=== PATIENT | female | born 1955 ===

== ENCOUNTER 2023-07-18 10:11 | Outpatient (AMB) | payer MEDICARE, SELFPAY ==
--- NOTE | 2023-07-18 10:13 | MHC.OFFVIS ---
Intake Vital Signs 07/18/23 10:14 Height 5 ft 4 in Weight 159 lb 8 oz BMI 27.4 BP 130/72 Blood Pressure Location Rt brachial Position Sitting Pulse 67 Pulse Source Pulse Oximeter Pulse Oximetry (%) 97 Oxygen Delivery Method Room Air Intake Visit Reasons: ENP-Migraines Intake Note: Patient presents for migraines. Patient states this happened about a year ago. I haven't had a migraine in months, but I do get pain in the back of my head. Allergies Penicillins Allergy (Severe, Verified 07/18/23 10:17) Rash aspirin Allergy (Unknown, Verified 07/18/23 10:17) Unknown tramadol Allergy (Unknown, Verified 07/18/23 10:17) Unknown Medication List - Last Reconciled 07/18/23 by DANA Sparks amitriptyline 25 mg PO BEDTIME atorvastatin 40 mg PO DAILY chlorthalidone 25 mg PO DAILY cholecalciferol (vitamin D3) 50 mcg PO DAILY diclofenac sodium 1% topical ezetimibe 10 mg PO DAILY famotidine 20 mg PO BID fluticasone propionate 50 mcg/actuation sprays intranasal ketotifen fumarate 0.025%(0.035%) (Eye Itch Relief) 0 drps ophthalmic (eye) levothyroxine 88 mcg PO DAILY meloxicam 7.5 mg PO DAILY HPI HPI Comments History of Present Illness Details Left-handed 67-yr-old female presents for new pt evaluation of headache disorder. Pt reports she started having headaches about 2 yrs ago w/o preceding cause. She has a more severe attack in March, but since attacks have been less severe and frequent. Headache questionnaire: Head Ct in March- negative Typical headache characteristics: Prodrome symptoms? none Aura? none Location, quality, characteristics? The pain starts in the back of the neck/head and moves into bifrontal region. The pain is pressure Pain intensity? mild-severe Associated symptoms? photophobia, phonophobia, osmophobia, nausea, if more severe dizziness, neck/back pain, Focal weakness, Parethesias, Autonomic s/s? red/watery eyes Postdrome? unsure Triggers? not sleeping well, stress Any positional, valsalva, exertional, sexual activity triggers? none Menstrual triggers? none Time of day? Often in the morning Duration? hours if she relaxs Frequency? About 1 x per week, more severe headache is more rare- last was in march. How does headache impact your life? rests Current acute medication use/interventions: Tylenol- helps a little. Meloxicam- thinks Tylenol helps better and irriates her stomach. Previous acute medication use: None Current preventative medication use: Amitriptyline Previous preventative medication use: None Non-pharmacological interventions: Has done PT for her neck- did not help much. History of musculoskeletal disorders or injury? She has arthritis in her neck, hands, knees History of concussion/head injury? None History of mood disorder? None History of sleep disorder? She has difficulty sleeping, difficulty falling asleep- thinking too much, wakes up frequently, easily dozes off when inactive. Has never had a sleep study. History of respiratory disease? none, but has environment/animal allergies History of CV disease? HTN- well-controlled at this time History of coagulopathy? None History of endocrine or metabolic disease? Hypothyroidism- stable, f/b endocrinology- at [place] in [facility]. History of seizure? None History of GI disorder? Gastritis Other? Has tingling, cramps, feeling of insects crawling in her solomon hands and feet- more so at rest or when in bed. Has restlessness, especially when in bed. Denies known h/o anemia. Family planning? none Family history of migraine or other headache disorder? yes PFSH Medical History (Updated 07/18/23 @ 19:02 by DANA Sparks) Arthritis Atypical chest pain Calcaneal spur, left Chronic constipation Chronic knee pain GERD (gastroesophageal reflux disease) HLD (hyperlipidemia) HTN (hypertension) Hypothyroidism Liver disorder Spondylolisthesis, lumbar region Vitamin D deficiency Surgical History (Updated 07/18/23 @ 10:20 by ELVA Lawson) H/O tubal ligation History of rotator cuff surgery History of surgery on lower extremity Family History (Updated 07/18/23 @ 10:20 by ELVA Lawson) Father Cancer Social History Alcohol intake: never Patient Tobacco Use Status: Never used Tobacco Review of Systems Const Details: See scanned ROS form Physical Exam Vital Signs: Last Vital Signs Pulse 67 07/18/23 10:14 BP 130/72 07/18/23 10:14 Pulse Ox 97 07/18/23 10:14 Oxygen Delivery Method Room Air 07/18/23 10:14 BMI result Body Mass Index 27.4 Const Orientation/consciousness: patient oriented x3 HEENT Other: Mild palpable scalp tenderness. Mallampati grade IV Head: Yes normocephalic Resp Effort & Inspection: normal respiratory effort and able to speak in complete sentences Back/Spine/Pelvis Other: Bilateral posterior cervical tightness. Cervical ROM: limited Left Spurling: normal Right Spurling: normal. Neuro General: patient oriented x3 Cranial nerves: Yes CN's II-XII intact bilaterally Cognition (Neuro): normal cognition Gait exam (Neuro): Normal gait present Motor exam (neuro): 5/5 motor strength present throughout Deep tendon reflexes (DTR's): Right triceps reflex intensity grade: 2+, Left triceps reflex intensity grade: 2+, Rt Biceps (C5, C6): 2+, Left biceps reflex intensity grade: 2+, Right brachioradialis reflex intensity grade: 2+, Left brachioradialis reflex intensity grade: 2+, Right patellar reflex intensity grade: 2+ and Left patellar reflex intensity grade: 2+ Coordination: [id number] test normal, tandem gait normal and Romberg test negative Pupils: Normal pupillary reactivity/response: bilateral Psych Appearance: grossly normal Mental Status: mental status grossly normal Speech and movement: Normal speech and movement present Affect: normal affect Attitude: cooperative Thought process: Normal thought process present Assessment & Plan Assessment & Plan (1) Migraine without aura: Code(s): G43.009 - Migraine without aura, not intractable, without status migrainosus (2) Snoring: Code(s): R06.83 - Snoring (3) Excessive daytime sleepiness: Code(s): G47.19 - Other hypersomnia (4) Sleep difficulties: Code(s): G47.9 - Sleep disorder, unspecified (5) Restless leg: Code(s): G25.81 - Restless legs syndrome (6) Cervicalgia: Code(s): M54.2 - Cervicalgia Plan Pt advised to undergo HST to assess for sleep apnea For overall headache management: Discussed importance of good self-care, including but not limited to maintaining a healthy diet, adequate fluid intake, adequate sleep, and engaging in regular physical activity. For headache triggers: Track headaches. Monitor restless legs- consider furtehr work-up / tx . Monitor neck pain response to migarine tx. For acute headache treatment: Discussed importance of taking acute medications at the first sign of headache, however stressed importance of avoiding acute medication overuse (especially with combined headache medications). Trial Ubrogepant (Ubrelvy) 100mg tab, 1/2 - 1 tab (50-100mg) at onset of headache, may repeat in 2 hours. Max of 2 tabs (200mg) per 24 hours. May adjunct with OTC Tylenol 650mg q 4 hours. Reviewed potential adverse effects of gepants, including but not limited to fatigue, nausea, dry mouth, constipation. Previous acute migraine medication trials: Ibuprofen- causes I upset Acute migraine medication contraindications: Triptans d/t hx of HTN For headache prevention medication: Discussed that preventative medications should be taken routinely as prescribed for best effect, it may take several weeks for full effect to take effect. Start Magnesium 400mg qhs Continue Amitriptyline 25mg qhs Previous migraine prevention medication trials: None other Migraine prevention medication contraindications: Would avoid Aimovig d/t hx of chronic constipation. Information also given on non-pharmacological interventions, such as Cefaly or Nerivio neuromodulation devices. Pt to follow-up in 3 months or sooner prn. Orders: Orders RT home sleep study Today G47.19 - Other hypersomnia, G47.9 - Sleep disorder, unspecified, R06.83 - Snoring Medications: New ubrogepant (Ubrelvy) take at onset of migraine, may repeat in 2hrs (may take w/ Tylenol) 50 - 100 mg (0.5 - 1 x 100 mg) PO ONCE 30 days PRN 10 tabs 6RF migraine headache magnesium oxide may hold for loose stools 400 mg PO BEDTIME 30 days 30 tabs 6RF Coding Level of Care Code New Pt Level 4 (00128) Diagnoses Migraine without aura G43.009 Snoring R06.83 Excessive daytime sleepiness G47.19 Sleep difficulties G47.9 Restless leg G25.81 Cervicalgia M54.2
[2023-07-18 10:14] VITALS: BP 130/72; PULSE 67; O2SAT 97; BMI 27.4
== END 2023-07-18 11:16 | disposition home or self-care (01) ==
PROVIDERS: Visit Provider Nurse Practitioner Family
DX: G43.009 Migraine without aura, not intractable, without status migrainosus (principal); R06.83 Snoring; G47.19 Other hypersomnia; G47.9 Sleep disorder, unspecified; G25.81 Restless legs syndrome; M54.2 Cervicalgia
CPT/HCPCS: 99204

== ENCOUNTER → 2023-07-18 10:11 | Outpatient (BNVA) | payer MEDICARE, SELFPAY | PROVIDERS: Visit Provider Nurse Practitioner Family | DX: G43.009 Migraine without aura, not intractable, without status migrainosus (principal); G47.19 Other hypersomnia; G47.9 Sleep disorder, unspecified; G25.81 Restless legs syndrome; M54.2 Cervicalgia; R06.83 Snoring | CPT/HCPCS: 99202 ==

== ENCOUNTER → 2023-09-04 15:58 | Outpatient (REF) | payer MEDICARE, SELFPAY | LOC: HO.SL 15:58 | PROVIDERS: PCP Internal Medicine; Visit Provider Nurse Practitioner Family | DX: G47.19 Other hypersomnia (principal); G47.9 Sleep disorder, unspecified; R06.83 Snoring | CPT/HCPCS: 95806 ==

== ENCOUNTER → 2023-09-04 16:10 | Outpatient (BNV) | payer MEDICARE, SELFPAY | PROVIDERS: PCP Internal Medicine; Visit Provider Psychiatry & Neurology Neurology | DX: G47.33 Obstructive sleep apnea (adult) (pediatric) (principal) | CPT/HCPCS: 95806 ==

== ENCOUNTER → 2023-10-22 15:39 | Outpatient (BNVA) | payer MEDICARE, SELFPAY | PROVIDERS: PCP Internal Medicine; Visit Provider Nurse Practitioner Family ==

== ENCOUNTER 2024-01-28 13:56 | Outpatient (AMB) | payer MEDICARE, SELFPAY ==
--- NOTE | 2024-01-28 14:01 | MHC.OFFVIS ---
Intake Vital Signs 01/28/24 14:03 Height 5 ft 4 in Weight 165 lb BMI 28.3 BP 124/76 Blood Pressure Location Rt brachial Position Sitting Pulse 77 Pulse Source Pulse Oximeter Pulse Oximetry (%) 98 Oxygen Delivery Method Room Air Intake Visit Reasons: 3 month f/u-Conf Intake Note: Patient presents for 3 month follow up. some improvement but still have a problem falling asleep. Allergies Penicillins Allergy (Severe, Verified 01/28/24 14:05) Rash aspirin Allergy (Unknown, Verified 01/28/24 14:05) Unknown tramadol Allergy (Unknown, Verified 01/28/24 14:05) Unknown Medication List - Last Reconciled 01/28/24 by DANA Sparks amitriptyline 25 mg PO BEDTIME atorvastatin 40 mg PO DAILY chlorthalidone 25 mg PO DAILY cholecalciferol (vitamin D3) 50 mcg PO DAILY diclofenac sodium 1% topical ezetimibe 10 mg PO DAILY famotidine 20 mg PO BID fluticasone propionate 50 mcg/actuation sprays intranasal ketotifen fumarate 0.025%(0.035%) (Eye Itch Relief) 0 drps ophthalmic (eye) levothyroxine 88 mcg PO DAILY magnesium oxide 400 mg PO BEDTIME 30 days meloxicam 7.5 mg PO DAILY ubrogepant (Ubrelvy) 50 - 100 mg (0.5 - 1 x 100 mg) PO ONCE PRN 30 days HPI HPI Comments History of Present Illness Details 68-yr-old female presents for f/u visit. Pt denies any significant interval medical changes. Pt has not rec'd the APAP machine yet. She continues to have difficulty falling asleep. Usual bedtime is 1-2am, but does not fall asleep until 2-3am, and rises around 10-11am. She does not take naps. States she can only fall asleep if very tired and in silence. Her room is usually quiet. She is prone to ruminating at bedtime. She takes 1-2 cups of coffee in the morning. Takes chamomile tea near bedtime. She is having less headaches. Sometimes she can have pressure in her neck. Trying to do the cervical ROM exercises. Ubrelvy is helpful. Baseline headache characteristics: Mild to moderate to severe, pressure pain starts in the back of the neck/head and moves into bifrontal region a/w photophobia, phonophobia, osmophobia, nausea, if more severe dizziness, neck/back pain, red/watery eyes PFSH Medical History Vitamin D deficiency Hypothyroidism Calcaneal spur, left GERD (gastroesophageal reflux disease) Chronic knee pain Spondylolisthesis, lumbar region Liver disorder Arthritis Chronic constipation Atypical chest pain HLD (hyperlipidemia) HTN (hypertension) Surgical History History of surgery on lower extremity H/O tubal ligation History of rotator cuff surgery Family History Father Cancer Social History Alcohol intake: never Patient Tobacco Use Status: Never used Tobacco Physical Exam Vital Signs: Last Vital Signs Pulse 77 01/28/24 14:03 BP 124/76 01/28/24 14:03 Pulse Ox 98 01/28/24 14:03 Oxygen Delivery Method Room Air 01/28/24 14:03 BMI result Body Mass Index 28.3 Const General: cooperative and no acute distress Orientation/consciousness: patient oriented x3 Resp Effort & Inspection: normal respiratory effort and able to speak in complete sentences Neuro General: patient oriented x3 Cranial nerves: Yes CN's II-XII intact bilaterally Cognition (Neuro): normal cognition Psych Appearance: grossly normal Mental Status: mental status grossly normal Speech and movement: Normal speech and movement present Affect: normal affect Attitude: cooperative Assessment & Plan Assessment & Plan (1) Mild obstructive sleep apnea: Code(s): G47.33 - Obstructive sleep apnea (adult) (pediatric) (2) Migraine without aura: Code(s): G43.009 - Migraine without aura, not intractable, without status migrainosus Plan For mild obstructive sleep apnea and sleep difficulties: Trial Melatonin 3-6mg q 10pm- or a few hours before bedtime. Pt does not believe she will tolerate APAP 5-20 cmH2O. Will request ENT's opinion on alternate tx's. ? For overall headache management: Track headaches. Monitor restless legs. Monitor neck pain. ? For acute headache treatment: Continue Ubrogepant (Ubrelvy) 100mg tab, 1/2 - 1 tab (50-100mg) at onset of headache, may repeat in 2 hours. Max of 2 tabs (200mg) per 24 hours. May adjunct with OTC Tylenol 650mg q 4 hours. Previous acute migraine medication trials: Ibuprofen- causes I upset Acute migraine medication contraindications: Triptans d/t hx of HTN ? For headache prevention medication: Continue Magnesium 400mg qhs Continue Amitriptyline 25mg qhs Previous migraine prevention medication trials: None other Migraine prevention medication contraindications: Would avoid Aimovig d/t hx of chronic constipation. ? Pt to follow-up in 6 months in person or sooner prn. Orders: Referrals Ear/Nose/Throat Referral G47.33 - Obstructive sleep apnea (adult) (pediatric) Medications: New melatonin at 10pm 6 mg (2 x 3 mg) PO BEDTIME PRN 60 tabs 6RF sleep 30 days Refilled ubrogepant (Ubrelvy) take at onset of migraine, may repeat in 2hrs (may take w/ Tylenol) 50 - 100 mg (0.5 - 1 x 100 mg) PO ONCE PRN 10 tabs 6RF migraine headache 30 days Coding Level of Care Code Est Pt Level 4 (69842) Diagnoses Mild obstructive sleep apnea G47.33 Migraine without aura G43.009
[2024-01-28 14:03] VITALS: BP 124/76; PULSE 77; O2SAT 98; BMI 28.3
== END 2024-01-28 15:07 | disposition home or self-care (01) ==
LOC: HO.HSMS 13:56
PROVIDERS: PCP Internal Medicine; Visit Provider Nurse Practitioner Family
DX: G47.33 Obstructive sleep apnea (adult) (pediatric) (principal); G43.009 Migraine without aura, not intractable, without status migrainosus
CPT/HCPCS: 99214

== ENCOUNTER → 2024-01-28 13:56 | Outpatient (BNVA) | payer MEDICARE, SELFPAY | PROVIDERS: PCP Internal Medicine; Visit Provider Nurse Practitioner Family | DX: G47.33 Obstructive sleep apnea (adult) (pediatric) (principal); G43.009 Migraine without aura, not intractable, without status migrainosus; Z79.899 Other long term (current) drug therapy | CPT/HCPCS: 99212 ==

== ENCOUNTER 2024-06-03 11:15 | Emergency (ER) | payer OTHER, SELFPAY ==
--- NOTE | ~2024-06-03 | CT_ITS ---
EXAMINATION: CT CERVICAL SPINE WITHOUT CONTRAST CLINICAL INFORMATION: Right-sided neck pain. No other information provided. No trauma history given (although this is uploaded in our [employer] PACS as an emergency/stat exam). COMPARISON: None available. TECHNIQUE: Noncontrast CT imaging examination of the cervical spine is performed. The axial images and multiplanar reformatted images are reviewed. This CT examination was performed using dose optimization techniques as appropriate, variously including the following: *Automated exposure control *Adjustment of mA and/or kV according to patient size (this includes techniques or standardized protocols for targeted exams where dose is matched to indication/reason for exam; i.e. extremities or head) *Use of iterative reconstruction technique DLP: 450 mGy-cm FINDINGS: No acute imaging abnormalities. Skull base and craniocervical junction are normal. The occipital condyles, dens and atlantodental articulation are intact. There is calcium deposition (likely calcium pyrophosphate dihydrate crystal deposition) along the transverse ligament posterior to the dens. No dens fracture. Chondrocalcinosis at some of the intervertebral discs. The vertebral body heights and alignment are maintained. No fractures in the anterior or posterior elements. No prevertebral soft tissue edema or soft tissue hematoma. There is lack of lordotic curvature of the degenerated cervical spine. Multilevel discovertebral degenerative change. [id number] degenerative disc space narrowing at C5-C6 and C6-C7. Otherwise, disc heights are generally well-preserved. Anterior vertebral traction osteophytes are present at C3-C4, C4-C5, C5-C6 and C6-C7. Findings at individual levels of the cervical spine include the following: C2-C3: No spinal canal or neural foraminal stenosis. C3-C4: No spinal canal or neural foraminal stenosis. C4-C5: There is a very small central posterior disc osteophyte complex without spinal canal stenosis. Mild bilateral uncovertebral joint hypertrophy without significant neural foraminal stenosis. C5-C6: Small posterior disc-osteophyte complex and bilateral uncovertebral joint hypertrophy causes mild bilateral neural foraminal stenosis. C6-C7: Small posterior disc-osteophyte complex without significant narrowing of the central spinal canal. Bilateral uncovertebral joint hypertrophy (left worse than right) resulting in mild right and moderate left neural foraminal stenosis. C7-T1: Disc height is maintained. Small anterior vertebral traction osteophyte formation at C7. The facet joints are unremarkable. No spinal canal or neural foraminal stenosis. CT/CT cervical spine wo IV con IMPRESSION: * No acute findings. No fracture or malalignment of the cervical spine. * There is calcium deposition (likely calcium pyrophosphate dihydrate crystal deposition) of the cervical spine. * Disc degenerative changes and uncovertebral joint hypertrophy are mainly observed at the C5-C6 and C6-C7 levels. At C6-C7, there is mild right and moderate left neural foraminal stenosis. Mild bilateral neural foraminal stenosis is noted at C5-C6. There is no significant stenosis of the central spinal canal.
[2024-06-03 11:20] VITALS: BP 118/66; PULSE 99; RESP 20; TEMP 36.6; O2SAT 98; BMI 28.9
--- NOTE | 2024-06-03 11:24 | ED_ITS ---
HPI - Neck Pain/Injury General Chief Complaint: Neck Pain/Injury Stated Complaint: Neck & shoulder pain, headache Time Seen by Provider: 06/03/24 12:13 Source: patient and interpreter translator Mode of arrival: ambulatory Limitations: no limitations History of Present Illness ED Provider: Caprice Brizuela PA-C HPI Narrative: 48 y/o Bruneian speaking female presents to the ER with history of SOWMYA, migraine s, RLS, who presents to the ER for evaluation of right sided neck pain for the last 1 week. She denies any injury or trauma that she can recall. She reports going to urgent care on Friday where she had x-rays done showing a pinched nerve in C4-C6. she was given topical lidocaine patches with no improvement. she is on meloxicam chronically for arthritis. she reports pain is in the right side of the neck and shoots down the arm. no weakness or numbness, justy pain. no headaches, fevers, chest pain, abdominal pain. MD complaint: neck pain Onset (ago): week(s) Place: home Radiation: right upper extremity Severity: severe Quality: sharp and stabbing Duration: constant and progressively worsening Relieving factors: none Exacerbating factors: movement of extremity and movement of neck Associated symptoms: none Treatments prior to arrival: none Related Data Home Medications ?Medication ?Instructions ?Recorded ?Confirmed amitriptyline 25 mg tablet 25 mg PO BEDTIME 07/18/23 01/28/24 atorvastatin 40 mg tablet 40 mg PO DAILY 07/18/23 01/28/24 chlorthalidone 25 mg tablet 25 mg PO DAILY 07/18/23 01/28/24 cholecalciferol (vitamin D3) 50 50 mcg PO DAILY 07/18/23 01/28/24 mcg (2,000 unit) tablet diclofenac sodium 1 % topical gel topical 07/18/23 01/28/24 ezetimibe 10 mg tablet 10 mg PO DAILY 07/18/23 01/28/24 famotidine 20 mg tablet 20 mg PO BID 07/18/23 01/28/24 fluticasone propionate 50 spray intranasal 07/18/23 01/28/24 mcg/actuation nasal spray,suspension ketotifen fumarate 0.025 % (0.035 0 drp ophthalmic (eye) 07/18/23 01/28/24 %) eye drops (Eye Itch Relief) levothyroxine 88 mcg tablet 88 mcg PO DAILY 07/18/23 01/28/24 meloxicam 7.5 mg tablet 7.5 mg PO DAILY 07/18/23 01/28/24 Previous Rx's ?Medication ?Instructions ?Recorded magnesium oxide 400 mg (241.3 mg 400 mg PO BEDTIME 30 days #30 tabs 12/18/23 magnesium) tablet melatonin 3 mg tablet 6 mg (2 x 3 mg) PO BEDTIME PRN 01/28/24 sleep 30 days #60 tabs ubrogepant 100 mg tablet (Ubrelvy) 50 - 100 mg (0.5 - 1 x 100 mg) PO 01/28/24 ONCE PRN migraine headache 30 days #10 tabs cyclobenzaprine 10 mg tablet 10 mg PO BID PRN muscle spasm #10 06/03/24 tabs prednisone 20 mg tablet 40 mg (2 x 20 mg) PO DAILY #10 tabs 06/03/24 Allergies Allergy/AdvReac Type Severity Reaction Status Date / Time Penicillins Allergy Severe Rash Verified 06/03/24 11:25 aspirin Allergy Unknown Unknown Verified 06/03/24 11:25 tramadol Allergy Unknown Unknown Verified 06/03/24 11:25 Review of Systems Review of Systems: Yes all other systems are reviewed and are negative PMFSH Past Medical History Medical History Vitamin D deficiency Hypothyroidism Calcaneal spur, left GERD (gastroesophageal reflux disease) Chronic knee pain Spondylolisthesis, lumbar region Liver disorder Arthritis Chronic constipation Atypical chest pain HLD (hyperlipidemia) HTN (hypertension) Surgical History History of surgery on lower extremity H/O tubal ligation History of rotator cuff surgery Family History Family History Father Cancer Social History Social History Alcohol intake: never Patient Tobacco Use Status: Never used Tobacco Advance Directives: No Advance Directives Information Provided: Yes Physical Exam Vital Signs: Vital Signs: Last Vital Signs Temp 98 F 06/03/24 14:04 Pulse 99 06/03/24 14:04 Resp 20 06/03/24 14:04 BP 118/66 06/03/24 14:04 Pulse Ox 98 06/03/24 14:04 O2 Del Method Room Air 06/03/24 14:04 BMI result Body Mass Index 28.9 Appearance: Alert. Oriented X3. No acute distress. Head: normocephalic, atraumatic. Eyes: Pupils equal, round and reactive to light. ENT: Pharynx normal. No tonsillar swelling or exudate. Neck: Normal inspection. right sided soft tissue tenderness of the neck. pain with rotation of the head to the left and right, limited range of motion due to pain. no stepoff deformities. CVS: Normal heart rate and rhythm. Pulses normal. Respiratory: No respiratory distress. Breath sounds normal. Abdomen: Soft and nontender. +BS x4 Skin: Skin warm and dry. Normal skin color. Normal skin turgor. No rashes. Extremities: No lower extremity edema. No joint swelling. tenderness of the right shoulder and right upper arm. normal ROM. strength is equal and symmetrical Neuro/psych: Oriented X 3. No motor deficit. No sensory deficit. CN II-XII intact. Normal speech and cognition. Course Course Course Narrative: This is a Rapid Medical Exam performed in triage by Khadijah Hernandez PA-C. Full HPI, ROS and PE to be performed by primary ED provider. 68 year-old w/ PMHx restless leg syndrome, migraines, presenting to the ED c/o R sided neck pain x2 weeks w/[facility]. was seen at had XR showing pinched nerve & taking muscle relaxer w/o relief. denies CP PE: R paraspinal and trapezius muscle ttp. +neck stiffness. no meningeal signs Plan: Cervical CT ordered Medications Administered Discontinued Medications Generic Name Dose Route Start Last Admin Trade Name Freq PRN Reason Stop Dose Admin Acetaminophen 975 mg 06/03/24 13:06/03/24 13:51 Acetaminophen 325 Mg Tablet PO 06/03/24 13:08 975 mg ONCE ONE Administration Cyclobenzaprine HCl 10 mg 06/03/24 13:06/03/24 13:51 Cyclobenzaprine Hcl 10 Mg Tablet PO 06/03/24 13:08 10 mg ONCE ONE Administration Prednisone 40 mg 06/03/24 13:06/03/24 13:50 Prednisone 20 Mg Tablet PO 06/03/24 13:08 40 mg ONCE ONE Administration Medical Decision Making Medical Decision Making MDM Narrative: 68 yo female with right sided neck pain x1. XRs showing c4-c6 pinched nerve at . CT scan cervical spine ordered from triage. staff internist office based only used to discuss results and management with the patient will start prednisone for anti-inflammatory effects, muscle relaxer. encouraged f/u with PCP and applied behavior science specialist. Differential Diagnosis Differential Diagnoses: The differential diagnosis associated with the presentation includes cervical radiculoapthy, cervical fracture, spondylosis, muscle spasm, DJD Independent Interpretation I performed an independent interpretation of an: CT Scan Interpretation: no acute fractures appreciated, agree w/ radiology read Radiology Impression Discussion of test interpretation with radiology: I have reviewed the radiologist's reading. Radiologist Impression: T/CT cervical spine wo IV con IMPRESSION: * No acute findings. No fracture or malalignment of the cervical spine. * There is calcium deposition (likely calcium pyrophosphate dihydrate crystal deposition) of the cervical spine. * Disc degenerative changes and uncovertebral joint hypertrophy are mainly observed at the C5-C6 and C6-C7 levels. At C6-C7, there is mild right and moderate left neural foraminal stenosis. Mild bilateral neural foraminal stenosis is noted at C5-C6. There is no significant stenosis of the central spinal canal. Independent Historian Clinical information obtained from an independent historian. History obtained from or confirmed by: Other ([employer] at bedside) External Record Review External record reviewed: Outpatient record and Prior outpatient radiology Prescription Management I considered prescription management with: Pain Medication and Other (steroids, muscle relaxer) Critical Care Time Critical Care Time Critical Care Time: No Discharge Plan Discharge Clinical Impression: Cervicalgia, Cervical radiculopathy Patient Disposition: Home, Self-Care Instructions: Cervical Radiculopathy (ED), Neck Pain (ED) Additional Instructions: Use ice several times per day for 20 minutes at a time for the next 48 hours and then change to heat. Take medications as prescribed to help with pain and discomfort. Do not take the Melixicam while you are on prednisone. this will help with inflammation and the pain. The muscle relaxer may make you sleepy - do not drive after taking the medication Follow up with your Primary Care Doctor this week. Recommend following up with a applied behavior science specialist - name and number below, call for an appointment. If you develop new or worsening symptoms call 911 or come back to the ER for further evaluation. CT/CT cervical spine wo IV con IMPRESSION: * No acute findings. No fracture or malalignment of the cervical spine. * There is calcium deposition (likely calcium pyrophosphate dihydrate crystal deposition) of the cervical spine. * Disc degenerative changes and uncovertebral joint hypertrophy are mainly observed at the C5-C6 and C6-C7 levels. At C6-C7, there is mild right and moderate left neural foraminal stenosis. Mild bilateral neural foraminal stenosis is noted at C5-C6. There is no significant stenosis of the central spinal canal. Prescriptions: New prednisone 20 mg tablet 40 mg PO DAILY Qty: 10 0RF cyclobenzaprine 10 mg tablet 10 mg PO BID PRN (Reason: muscle spasm) Qty: 10 0RF No Action magnesium oxide 400 mg (241.3 mg magnesium) tablet 400 mg PO BEDTIME 30 Days Qty: 30 6RF Rx Instructions: may hold for loose stools melatonin 3 mg tablet 6 mg PO BEDTIME PRN (Reason: sleep) 30 Days Qty: 60 6RF Rx Instructions: at 10pm Ubrelvy 100 mg tablet 50 - 100 mg PO ONCE PRN (Reason: migraine headache) 30 Days Qty: 10 6RF Rx Instructions: take at onset of migraine, may repeat in 2hrs (may take w/ Tylenol) amitriptyline 25 mg tablet 25 mg PO BEDTIME atorvastatin 40 mg tablet 40 mg PO DAILY chlorthalidone 25 mg tablet 25 mg PO DAILY ezetimibe 10 mg tablet 10 mg PO DAILY levothyroxine 88 mcg tablet 88 mcg PO DAILY meloxicam 7.5 mg tablet 7.5 mg PO DAILY cholecalciferol (vitamin D3) 50 mcg (2,000 unit) tablet 50 mcg PO DAILY fluticasone propionate 50 mcg/actuation spray,suspension intranasal ketotifen fumarate [Eye Itch Relief] 0.025 % (0.035 %) drops 0 drp ophthalmic (eye) famotidine 20 mg tablet 20 mg PO BID diclofenac sodium 1 % gel topical Referrals: Augustus Sultana MD, PhD [Physician] - ( CT/CT cervical spine wo IV con IMPRESSION: * No acute findings. No fracture or malalignment of the cervical spine. * There is calcium deposition (likely calcium pyrophosphate dihydrate crystal deposition) of the cervical spine. * Disc degenerative changes and uncovertebral joint hypertrophy are mainly observed at the C5-C6 and C6-C7 levels. At C6-C7, there is mild right and moderate left neural foraminal stenosis. Mild bilateral neural foraminal stenosis is noted at C5-C6. There is no significant stenosis of the central spinal canal.) Interventions: ED Discharge Assessment Last Done: 06/03/24 14:04 Discharge Date/Time: 06/03/24 14:05 Print Language: Bruneian
[2024-06-03] MEDS: predniSONE 20 MG TABLET 40 MG PO (13:50)
[2024-06-03] MEDS: Acetaminophen 325 MG TABLET 975 MG PO (13:51)
[2024-06-03] MEDS: Cyclobenzaprine HCl 10 MG TABLET PO (13:51)
[2024-06-03 14:04] VITALS: BP 118/66; PULSE 99; RESP 20; TEMP 36.6; O2SAT 98
== END 2024-06-03 14:05 | disposition home or self-care (01) ==
PROVIDERS: Emergency Provider Emergency Medicine Emergency Medical Services
DX: M54.12 Radiculopathy, cervical region (principal); M54.2 Cervicalgia; I10 Essential (primary) hypertension; E78.5 Hyperlipidemia, unspecified; E03.9 Hypothyroidism, unspecified; Z79.899 Other long term (current) drug therapy
CPT/HCPCS: 72125; 99283; 99284

== ENCOUNTER 2024-07-30 14:32 | Outpatient (AMB) | payer MEDICARE, SELFPAY ==
[2024-07-30 14:33] VITALS: BMI 29.1
--- NOTE | 2024-07-30 14:33 | A.OFFVIS_ITS ---
Vital Signs 07/30/24 14:33 Height 5 ft 2 in Weight 159 lb BMI 29.1 Intake Visit Reasons: follow up Intake Note: Patient presents for follow up Allergies Penicillins Allergy (Severe, Verified 07/30/24 14:37) Rash aspirin Allergy (Unknown, Verified 07/30/24 14:37) Unknown tramadol Allergy (Unknown, Verified 07/30/24 14:37) Unknown HPI Comments Details: 68-yr-old female presents for f/u visit for mild SOWMYA and migraine. Pt states she is not having any headaches at this time. She is more concerned with neck and more so low back pain. She states she had [facility] [place] for neck pain, for which she was tx'd w/ Prednisone and Meloxicam and advised to f/u w/ a spine specialsit. Then a week later, she woke up with severe lower back pain and limited mobility. She was brought to [facility], where work-up was concerning for lumbar septic arthritis. She was tx'd w/ IV ABT. She had f/u w/ ID and l-spine MRI at [facility] on 07/16/24. Per note available in [facility] peri, pt was to continue IV ABTs, have f/u labs, and f/u w/ ID in 2-3 weeks. Pt has not had f/u labs and states she is not aware that she needed a f/u appt w/ ID. She states her nurses told her she does not need th ABTs and her PICC line was reomoved. She has been waiting to receive an appt w/ her PCP. She states her low back pain is making it difficult to walk. She needs to stefan a cane. Denies recent fever, chills, rash, bowel/bladder changes. Per 07/16/24 ID note at [facility]: The MRI?showed heterogeneous enhancement is seen involving bilateral facet joints and the adjacent paraspinal muscles at L4-L5 level, worse on left. The findings are suspicious for acute septic arthritis with infectious or inflamma tory changes of the adjacent paraspinal muscles. There is also a small amount of heterogeneously enhancing soft tissues within the posterior epidural space. Mild epidural phlegmon cannot be excluded. ?Patient had interventional?radiology?evaluation?for possible aspiration?but was unable to find any specific targets to be able to obtain sample. ?Because of significant evidence suggesting infectious process, infectious disease has suggested?that the patient be started on vancomycin and ceftriaxone?for a total duration of 6 weeks.??Patient?recently had?elevated inflammatory markers?so antibiotic was changed to daptomycin?and?ceftriaxone.? Patient is also going for an MRI?of the lumbar spine?at 5 PM today.? Patient still has?pain on the lower back?on the pain scale?6 out of 10?but has?been better from her?time at the hospital. [facility] Medical History (Updated 08/01/24 @ 15:49 by DANA Sparks) Septic arthritis Vitamin D deficiency Hypothyroidism Calcaneal spur, left GERD (gastroesophageal reflux disease) Chronic knee pain Spondylolisthesis, lumbar region Liver disorder Arthritis Chronic constipation Atypical chest pain HLD (hyperlipidemia) HTN (hypertension) Surgical History History of surgery on lower extremity H/O tubal ligation History of rotator cuff surgery Family History Father Cancer Social History Alcohol intake: never Patient Tobacco Use Status: Never used Tobacco Physical Exam Vital Signs: BMI result Body Mass Index 29.1 Const General: cooperative and no acute distress Orientation/consciousness: patient oriented x3 Resp Effort & Inspection: normal respiratory effort and able to speak in complete sentences Neuro Other: low back pain. Slow to stand, slow steady gait w/ cane. General: patient oriented x3 Cranial nerves: Yes CN's II-XII intact bilaterally Cognition (Neuro): normal cognition Psych Appearance: grossly normal Mental Status: mental status grossly normal Speech and movement: Normal speech and movement present Affect: normal affect Attitude: cooperative Assessment & Plan Assessment & Plan (1) Elevated erythrocyte sedimentation rate: Code(s): R70.0 - Elevated erythrocyte sedimentation rate Category: Medical (2) Mild obstructive sleep apnea: Code(s): G47.33 - Obstructive sleep apnea (adult) (pediatric) Category: Medical (3) Migraine without aura: Code(s): G43.009 - Migraine without aura, not intractable, without status migrainosus Category: Medical (4) Septic arthritis: Comment: May 2024 Code(s): M00.9 - Pyogenic arthritis, unspecified Category: Medical Plan Call placed to [facility] ID to confirm if pt does still need f/u ID appt. Reviewed red flags signs for pt to seek urgent medical care. Check labs today- will forward resulkts to ID. ID office will contact pt to make f/u appt. For mild obstructive sleep apnea and sleep difficulties: Melatonin 6mg q 10pm- or a few hours before bedtime. Pt does not believe she will tolerate APAP 5-20 cmH2O. Will request ENT's opinion on alternate tx's. ? For overall headache management: Track headaches. Monitor restless legs. Monitor neck pain. ? For acute headache treatment: Continue Ubrogepant (Ubrelvy) 100mg tab, 1/2 - 1 tab (50-100mg) at onset of headache, may repeat in 2 hours. Max of 2 tabs (200mg) per 24 hours. May adjunct with OTC Tylenol 650mg q 4 hours. Previous acute migraine medication trials: Ibuprofen- causes I upset Acute migraine medication contraindications: Triptans d/t hx of HTN ? For headache prevention medication: Continue Magnesium 400mg qhs Continue Amitriptyline 25mg qhs Previous migraine prevention medication trials: None other Migraine prevention medication contraindications: Would avoid Aimovig d/t hx of chronic constipation. ? Pt to follow-up in 6 months in person or sooner prn. Orders: Orders Comprehensive Met. Panel 07/30/24 M00.9 - Pyogenic arthritis, unspecified, R70.0 - Elevated erythrocyte sedimentation rate Creatine Kinase Total 07/30/24 M00.9 - Pyogenic arthritis, unspecified, R70.0 - Elevated erythrocyte sedimentation rate CRP High Sensitivity 07/30/24 M00.9 - Pyogenic arthritis, unspecified, R70.0 - Elevated erythrocyte sedimentation rate NIKIA Reflex Titer and Pattern 07/30/24 M00.9 - Pyogenic arthritis, unspecified, R70.0 - Elevated erythrocyte sedimentation rate Rheumatoid Factor 07/30/24 M00.9 - Pyogenic arthritis, unspecified, R70.0 - Elevated erythrocyte sedimentation rate Complete Blood Count Auto Diff 07/30/24 M00.9 - Pyogenic arthritis, unspecified, R70.0 - Elevated erythrocyte sedimentation rate Erythrocyte Sedimentation Rate 07/30/24 M00.9 - Pyogenic arthritis, unspecified, R70.0 - Elevated erythrocyte sedimentation rate Coding Level of Care Code Est Pt Level 4 (11156) Diagnoses Elevated erythrocyte sedimentation rate R70.0 Mild obstructive sleep apnea G47.33 Migraine without aura G43.009 Septic arthritis M00.9
== END 2024-07-30 15:32 | disposition home or self-care (01) ==
PROVIDERS: PCP Internal Medicine; Visit Provider Nurse Practitioner Family
DX: R70.0 Elevated erythrocyte sedimentation rate (principal); G47.33 Obstructive sleep apnea (adult) (pediatric); G43.009 Migraine without aura, not intractable, without status migrainosus; M00.9 Pyogenic arthritis, unspecified
CPT/HCPCS: 99214

== ENCOUNTER → 2024-07-30 14:32 | Outpatient (BNVA) | payer MEDICARE, SELFPAY | PROVIDERS: PCP Internal Medicine; Visit Provider Nurse Practitioner Family | DX: G47.33 Obstructive sleep apnea (adult) (pediatric) (principal); R70.0 Elevated erythrocyte sedimentation rate; G43.009 Migraine without aura, not intractable, without status migrainosus; M00.9 Pyogenic arthritis, unspecified | CPT/HCPCS: 99212 ==

== ENCOUNTER 2025-02-11 10:28 | Outpatient (AMB) | payer MEDICARE, SELFPAY ==
--- NOTE | 2025-02-11 10:33 | A.OFFVIS_ITS ---
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 Accompanied by: Self / Same As Patient Allergies Penicillins Allergy (Severe, Verified 02/11/25 10:36) Rash aspirin Allergy (Unknown, Verified 02/11/25 10:36) Unknown tramadol Allergy (Unknown, Verified 02/11/25 10:36) Unknown Medication List - Last Reconciled 02/11/25 by DANA Sparks amitriptyline 25 mg PO BEDTIME atorvastatin 40 mg PO DAILY chlorthalidone 25 mg PO DAILY cholecalciferol (vitamin D3) 50 mcg PO DAILY cyclobenzaprine 10 mg PO BID PRN diclofenac sodium 1% topical ezetimibe 10 mg PO DAILY famotidine 20 mg PO BID fluticasone propionate 50 mcg/actuation sprays intranasal ketotifen fumarate 0.025%(0.035%) (Eye Itch Relief) 0 drps ophthalmic (eye) levothyroxine 88 mcg PO DAILY magnesium oxide 400 mg PO BEDTIME 30 days melatonin 6 mg (2 x 3 mg) PO BEDTIME PRN 30 days meloxicam 7.5 mg PO DAILY prednisone 40 mg (2 x 20 mg) PO DAILY ubrogepant (Ubrelvy) 50 - 100 mg (0.5 - 1 x 100 mg) PO ONCE PRN 30 days HPI Comments Details: Chief Complaint History of Present Illness The patient is a 69-year-old female presenting with follow-up for migraine without aura and mild obstructive sleep apnea (Not on PAP therapy due to c oncerns for claustrophobia). Current migraine management includes magnesium 400 mg and amitriptyline 25 mg, both at bedtime. she states she has not had any recent migraine attacks or even mild headaches. She Is concerned about her ongoing amitriptyline use due to experiences poor nighttime sleep and excessive daytime sleepiness. States her [facility] care team has suggested she discuss trying an alternate to amitriptyline with us. Abortive migraine treatment includes Ubrelvy 100 mg and supplemented with Tylenol- though she has not needed to use this recently. The patient is concerned about CPAP tolerance for sleep apnea. She has not been using melatonin. She has difficulty with sleep initiation due to racing thoughts and frequent awakenings, possibly linked to sleep apnea episodes, even while avoiding late-day caffeine. Additionally, she may fall asleep when inactive during the day, even when speaking to somebody. Reports limited regular physical activity, noting that the colder weather makes this more difficult. Interval history: Patient had follow-up infectious disease consult in August 2024 for possible septic arthritis- and it was thought that her previous episode of severe low back pain was not a result of an infectious etiology- and follow-up labs revealed improving ESR from 87 to 21. . [facility] Medical History (Updated 08/01/24 @ 15:49 by DANA Sparks) Septic arthritis Vitamin D deficiency Hypothyroidism Calcaneal spur, left GERD (gastroesophageal reflux disease) Chronic knee pain Spondylolisthesis, lumbar region Liver disorder Arthritis Chronic constipation Atypical chest pain HLD (hyperlipidemia) HTN (hypertension) Surgical History History of surgery on lower extremity H/O tubal ligation History of rotator cuff surgery Family History Father Cancer Social History Alcohol intake: never Patient Tobacco Use Status: Never used Tobacco Physical Exam Vital Signs: Last Vital Signs Pulse 85 02/11/25 10:35 BP 130/70 02/11/25 10:35 Pulse Ox 97 02/11/25 10:35 Oxygen Delivery Method Room Air 02/11/25 10:35 BMI result Body Mass Index 29.8 Const General: cooperative and no acute distress Orientation/consciousness: patient oriented x3 Resp Effort & Inspection: normal respiratory effort and able to speak in complete sentences Neuro General: patient oriented x3 Cranial nerves: Yes CN's II-XII intact bilaterally Cognition (Neuro): normal cognition Psych Appearance: grossly normal Mental Status: mental status grossly normal Speech and movement: Normal speech and movement present Affect: normal affect Attitude: cooperative Assessment & Plan Assessment & Plan (1) Migraine without aura: Code(s): G43.009 - Migraine without aura, not intractable, without status migrainosus Category: Medical (2) Mild obstructive sleep apnea: Code(s): G47.33 - Obstructive sleep apnea (adult) (pediatric) Category: Medical (3) Snoring: Code(s): R06.83 - Snoring Category: Medical (4) Excessive daytime sleepiness: Code(s): G47.19 - Other hypersomnia Category: Medical Plan Discussion Notes I discussed with the patient her migraine treatment and the impact of poor sleep quality. We reviewed her concerns related to obstructive sleep apnea and past resistance to CPAP therapy. Discussed that untreated obstructive sleep apnea is associated with fragmented sleep and daytime sleepiness. Also discussed that amitriptyline was ordered as a migraine preventive treatment, and not specifically for sleep, thus decreasing or stopping amitriptyline may resulted increased headache symptoms. I explained potential alternatives, including medical therapy to aid sleep and decrease anxiety that may interfere with sleep onset. Discussed the possibilities of ENT consultation due to past discussions and that melatonin could be ordered again and optimized by adjusting the time of intake to daily in the evening. Considered medication options such as duloxetine for anxiety and potential headache relief. The necessity of re- evaluating weight management and potential ENT issues was highlighted as part of managing the sleep apnea. Patient was informed and verbally consented to the use of an ambient scribe for clinic note documentation during this visit. For mild obstructive sleep apnea and sleep difficulties: Start melatonin 5 mg daily at 6pm. Start duloxetine 30 mg daily in the morning- as reducing anxiety may reduce tendency for ruminating thoughts upon sleep initiation. Discontinue amitriptyline due to residual daytime drowsiness. Will request ENT consult to request evaluation for alternate SOWMYA treatment options. ? For overall headache management: Track headaches. Monitor restless legs. Monitor neck pain. ? For acute headache treatment: Continue Ubrogepant (Ubrelvy) 100mg tab, 1/2 - 1 tab (50-100mg) at onset of headache, may repeat in 2 hours. Max of 2 tabs (200mg) per 24 hours. May adjunct with OTC Tylenol 650mg q 4 hours. Previous acute migraine medication trials: Ibuprofen- causes I upset Acute migraine medication contraindications: Triptans d/t hx of HTN ? For headache prevention medication: Continue Magnesium 400mg qhs Discontinue Amitriptyline 25mg daily at bedtime order- due to intolerance of daytime sleepiness. Again trial duloxetine 30 mg daily in the morning. Previous migraine prevention medication trials: Amitriptyline 25mg daily- due to intolerance of daytime sleepiness. Migraine prevention medication contraindications: Would avoid Aimovig d/t hx of chronic constipation. ? Pt to follow-up in 6 months in person or sooner prn. Orders: Referrals Ear/Nose/Throat Referral G47.19 - Other hypersomnia, G47.33 - Obstructive sleep apnea (adult) (pediatric), R06.83 - Snoring Medications: New duloxetine 30 mg PO DAILY 30 caps 6RF 30 days melatonin take daily at 6pm 5 mg PO DAILY 30 tabs 6RF 30 days Refilled ubrogepant (Ubrelvy) take at onset of migraine, may repeat in 2hrs (may take w/ Tylenol) 50 - 100 mg (0.5 - 1 x 100 mg) PO ONCE PRN 10 tabs 6RF migraine headache 30 days Discontinued prednisone Discontinued Reason: Patient no longer taking 40 mg (2 x 20 mg) PO DAILY 10 tabs 0RF melatonin at 10pm Discontinued Reason: Doctor's Order 6 mg (2 x 3 mg) PO BEDTIME 30 days PRN 60 tabs 6RF sleep Coding Level of Care Code Est Pt Level 4 (77215) Diagnoses Migraine without aura G43.009 Mild obstructive sleep apnea G47.33 Snoring R06.83 Excessive daytime sleepiness G47.19
[2025-02-11 10:35] VITALS: BP 130/70; PULSE 85; O2SAT 97; BMI 29.8
== END 2025-02-11 11:18 | disposition home or self-care (01) ==
LOC: HO.HSMS 10:28
PROVIDERS: PCP Internal Medicine; Visit Provider Nurse Practitioner Family
DX: G43.009 Migraine without aura, not intractable, without status migrainosus (principal); G47.33 Obstructive sleep apnea (adult) (pediatric); R06.83 Snoring; G47.19 Other hypersomnia
CPT/HCPCS: 99214

== ENCOUNTER → 2025-02-11 10:28 | Outpatient (BNVA) | payer MEDICARE, SELFPAY | PROVIDERS: PCP Internal Medicine; Visit Provider Nurse Practitioner Family | DX: G43.009 Migraine without aura, not intractable, without status migrainosus (principal); G47.33 Obstructive sleep apnea (adult) (pediatric); G47.19 Other hypersomnia; R06.83 Snoring | CPT/HCPCS: 99212 ==